=== PATIENT | female | born 1960 | race Caucasian/White ===

== ENCOUNTER 2022-05-12 10:08 | Emergency (ER) | payer OTHER ==
[~2022-05-12] VITALS: Ht 170.2 cm; Wt 73.5 kg
[2022-05-12] MEDS ORDERED: NAPROXEN500 MG PO (13:48)
== END 2022-05-12 13:52 | disposition home or self-care (01) ==
LOC: ER 10:08
DX: M25.562 Pain in left knee (principal); S82.002A Unspecified fracture of left patella, initial encounter for closed fracture; W18.30XA Fall on same level, unspecified, initial encounter; Y93.9 Activity, unspecified; Y92.413 State road as the place of occurrence of the external cause